=== PATIENT | male | born 1995 | race Hispanic/Latino ===

== ENCOUNTER 2016-07-20 15:51 | Emergency (ER) | payer OTHER ==
[~2016-07-20] VITALS: Ht 175.3 cm; Wt 80.3 kg
[2016-07-20 15:52] VITALS: BP 123/65
[2016-07-20] MEDS ORDERED: ZITHTAB PO (16:32)
== END 2016-07-20 17:01 | disposition home or self-care (01) ==
LOC: M ED 16:50
DX: Z20.2 Contact with and (suspected) exposure to infections with a predominantly sexual mode of transmission (principal)